=== PATIENT | male | born 1990 | race Caucasian/White ===

== ENCOUNTER 2016-11-30 12:21 | Emergency (ER) | payer OTHER, SELFPAY ==
[2016-11-30] MEDS ORDERED: Meclizine HCl 25 MG TAB ONE (12:50)
[2016-11-30 13:05] LABS: #Basophils 0.1 thou/uL (0.0-0.2); #Eosinphils 0.2 thou/uL (0.0-0.7); #Lymphocytes 2.5 thou/uL (1.20-3.40); #Monocytes 0.6 thou/uL (0.11-0.59); #Neutrophils 6.1 thou/uL (1.40-6.50); %Basophils 1.5 % (0.0-1.0); %Eosinophils 1.8 % (0.0-10.0); %Lymphocytes 26.2 % (21.0-51.0); %Monocytes 5.9 % (0.0-10.0); %Neutrophils 64.7 % (42.0-75.0); Hemoglobin 14.4 g/dL (14.0-18.0); Mean Corpuscular HGB CONC 32.5 g/dL (32.0-36.0); Mean Corpuscular Hemoglobin 28.3 pg (27.0-31.0); Mean Corpuscular Volume 87.2 fl (80.0-94.0); Mean Platelet Volume 5.8 fL (7.4-10.4); Platelet Count 271 thou/uL (130-400); RBC Distribution Width 11.7 % (11.5-14.5); Red Blood Cell (RBC) Count 5.09 mill/uL (4.70-6.10); White Blood Cell (WBC) Count 9.5 thou/uL (4.8-10.8)
[2016-11-30 13:15] LABS: Anion Gap 10 mmol/L (10-20); BUN (Urea Nitrogen) 16 mg/dL (8.9-20.6); Calc. Creatinine Clearance 0 mL/min (70-130); Calcium 8.9 mg/dL (7.8-10.44); Carbon Dioxide 27 mmol/L (22-29); Chloride 107 mmol/L (98-107); Estimated GFR-MDRD Greater than 90; Glucose 82 mg/dL (70-105); Potassium 3.8 mmol/L (3.5-5.1); Sodium 140 mmol/L (136-145)
[2016-11-30] MEDS ORDERED: Promethazine HCl 25 MG/ML VIAL ONE (14:41)
[2016-11-30] MEDS ORDERED: Ondansetron HCl/PF 4 MG/2 ML Vial ONE (14:42)
[2016-11-30 14:52] LABS: Bilirubin Negative (Negative); Blood, Urine Negative (Negative); Clarity Slightly Cloudy (Clear); Glucose, Urine (Dipstick) Negative (Negative); Leukocyte Negative (Negative); Nitrite Negative (Negative); Protein, Urine (Dipstick) Negative (Neg-Trace)
[2016-11-30 14:58] LABS: Amphetamine Detected (NotDetected); Barbiturates Screen Not Detected (NotDetected); Benzodiazepine Screen Not Detected (NotDetected); Cocaine Metabolite Screen Not Detected (NotDetected); Methadone Not Detected (NotDetected); Methamphetamine Detected (NotDetected); Opiate Screen Not Detected (NotDetected); Phencyclidine (PCP) Not Detected (NotDetected); THC/Cannabinoid Screen Not Detected (NotDetected); Tricyclic Screen Not Detected (NotDetected)
[2016-11-30 14:59] LABS: Medtox Control Line Valid? VALID (VALID); Oxycodone Screen Not Detected (NotDetected)
--- NOTE | 2016-11-30 21:18 | CT ---
CT OF THE BRAIN WITHOUT CONTRAST 11/30/2016 Comparison is made with an 08/06/2012 study. There has been no adverse interval change. The ventricles remain normal in size and show no shift. No intracranial bleeding, mass, or sign of stroke was found. No edema was seen. The posterior fos sa was unremarkable. The mastoid air cells are clear. The IACs are symmetrical. IMPRESSION: Stable exam showing no acute intracranial findings. POS: HOME
== END 2016-11-30 15:13 | disposition home or self-care (01) ==
LOC: BURERS 12:21
DX: H81.13 Benign paroxysmal vertigo, bilateral (principal); E86.0 Dehydration; F15.10 Other stimulant abuse, uncomplicated
CPT/HCPCS: 36415; 70450; 80048; 80306; 81003; 85025; 96361; 96374; J2405; J2550

== ENCOUNTER 2017-02-25 15:24 | Emergency (ER) | payer SELFPAY ==
[2017-02-25 15:49] LABS: #Basophils 0.1 thou/uL (0.0-0.2); #Eosinphils 0.1 thou/uL (0.0-0.7); #Lymphocytes 2.6 thou/uL (1.20-3.40); #Monocytes 0.9 thou/uL (0.11-0.59); #Neutrophils 8.6 thou/uL (1.40-6.50); %Basophils 1.1 % (0.0-1.0); %Eosinophils 1.1 % (0.0-10.0); %Neutrophils 69.8 % (42.0-75.0); Hemoglobin 15.5 g/dL (14.0-18.0); Mean Corpuscular HGB CONC 33.3 g/dL (32.0-36.0); Mean Corpuscular Hemoglobin 29.1 pg (27.0-31.0); Mean Corpuscular Volume 87.4 fl (80.0-94.0); Mean Platelet Volume 7.3 fL (7.4-10.4); Platelet Count 283 thou/uL (130-400); RBC Distribution Width 12.6 % (11.5-14.5); Red Blood Cell (RBC) Count 5.32 mill/uL (4.70-6.10); White Blood Cell (WBC) Count 12.3 thou/uL (4.8-10.8)
[2017-02-25 16:05] LABS: ALT (SGPT) 15 U/L (8-55); AST (SGOT) 17 U/L (5-34); Albumin 4.2 g/dL (3.5-5.0); Alkaline Phosphatase 60 U/L (40-150); Anion Gap 15 mmol/L (10-20); BUN (Urea Nitrogen) 10 mg/dL (8.9-20.6); Bilirubin, Total 0.4 mg/dL (0.2-1.2); Calc. Creatinine Clearance 0 mL/min (70-130); Calcium 9.5 mg/dL (7.8-10.44); Carbon Dioxide 27 mmol/L (22-29); Chloride 105 mmol/L (98-107); Estimated GFR-MDRD 84; Globulin 2.9 g/dL (2.4-3.5); Glucose 91 mg/dL (70-105); Potassium 3.7 mmol/L (3.5-5.1); Protein, Total 7.1 g/dL (6.0-8.3); Sodium 143 mmol/L (136-145)
[2017-02-25] MEDS ORDERED: Ketorolac Tromethamine 30 MG/ML VIAL ONE (16:21)
--- NOTE | 2017-02-25 23:57 | RAD ---
CHEST TWO VIEWS 02/25/17 Comparison is made with the 08/06/12 study. The heart is normal in size and the lungs are clear. No infiltrate or effusion was seen. The trachea is midline. Scoliosis is noted in the thoracic spine. IMPRESSION: No acute thoracic finding. POS: HOME
== END 2017-02-25 16:27 | disposition home or self-care (01) ==
LOC: BURERS 15:24
DX: E86.0 Dehydration (principal)
CPT/HCPCS: 71020; 80053; 85025; 96361; 96374; J1885

== ENCOUNTER 2018-01-18 16:27 | Emergency (ER) | payer SELFPAY ==
[2018-01-18] MEDS ORDERED: traMADol HCl 50 MG TAB ONE (17:52)
--- NOTE | 2018-01-18 19:34 | RAD ---
RIGHT ELBOW FOUR VIEWS: 01/18/18 There does appear to be a small joint effusion, but no fracture could be appreciated. The bony struct ures currently appear intact. If pain persists, then delayed followup images should be considered. IMPRESSION: Joint effusion, but no fracture could be confirmed at the moment. POS: HOME
== END 2018-01-18 17:53 | disposition home or self-care (01) ==
LOC: BURERS 16:27
DX: S53.401A Unspecified sprain of right elbow, initial encounter (principal); W19.XXXA Unspecified fall, initial encounter